=== PATIENT | male | born 1985 | race Two or more races ===

== ENCOUNTER 2025-03-09 16:00 | Emergency (ER) | payer MEDICAID, OTHER ==
[~2025-03-09] VITALS: Ht 170.2 cm; Wt 83.4 kg
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
--- NOTE | 2025-03-09 17:16 | DVH ---
Indication: fall Technique: XY R HAND 3 VIEW XRAYXY Comparison: None FINDINGS/IMPRESSION: Possible fracture ulnar styloid. Correlate with point tenderness. Mild degenerative cyst. Mild degenerative changes of the PIP and DIP joints.
--- NOTE | 2025-03-09 17:16 | DVH ---
Indication: fall Technique: XY R WRIST 3+ VIEW XRAY, XY R HAND 3 VIEW XRAYXY Comparison: None FINDINGS/IMPRESSION: Possible fracture ulnar styloid. Correlate with point tenderness. Mild degenerative cyst. Mild degenerative changes of the PIP and D IP joints.
[2025-03-09 18:20] VITALS: BP 131/84; PULSE 69; RESP 18; TEMP 98.4; O2SAT 98
== END 2025-03-09 18:19 | disposition home or self-care (01) ==
LOC: ER 16:07
DX: S52.611A Displaced fracture of right ulna styloid process, initial encounter for closed fracture (principal); W19.XXXA Unspecified fall, initial encounter; Y93.89 Activity, other specified; Y92.89 Other specified places as the place of occurrence of the external cause; Y99.8 Other external cause status
CPT/HCPCS: 29105; 73110; 73130